=== PATIENT | male | born 1950 | race Caucasian/White ===

== ENCOUNTER → 2021-03-18 | Outpatient (CLI) | payer MEDICARE ==
[2021-03-18 10:20] LABS: African American GFR (CKD) >90 (>60 ml/min/1.73 sqM); Blood Urea Nitrogen 15 mg/dL (9-20); Non-African American GFR(CKD) 86 (>60 ml/min/1.73 sqM)
--- NOTE | 2021-03-18 11:48 | CT ---
EXAMINATION TYPE: CT abdomen pelvis w con DATE OF EXAM: 03/18/2021 COMPARISON: None. HISTORY: Prostate cancer newly diagnosed. CT DLP: 652.3 mGycm, Automated Exposure Control for Dose Reduction was Utilized. CONTRAST: CT scan of the abdomen and pelvis is performed with oral and with IV Contrast, patient injected with 100 mL of Isovue 300. FINDINGS: LUNG BASES: No significant abnormality is appreciated. LIVER/GB: No significant abnormality is appreciated. PANCREAS: No significant abnormality is seen. SPLEEN: No significant abnormality is seen. ADRENALS: No significant abnormality is seen. KIDNEYS: Roughly 1.1 cm benign thin-walled cyst anteriorly at the lower pole of the left kidney coron al image 43 for reference incidentally noted. There is 2 mm nonobstructing calculus upper pole right kidney coronal image 54 Symmetrical rheumatoid uptake and excretion without hydronephrosis. Bladder h as asymmetric moderate wall thickening along superior aspect seen best on coronal images. Correlate c linically for outlet obstruction from BPH. Otherwise other etiologies need to be considered. BOWEL: Contrast extends to the rectum. Normal contrast-filled appendix. No suspicious small or large bowel dilatation PROSTATE/SEMINAL VESICLES: Prostate gland upper limits of normal in size. Adjacent pelvic phleboliths . LYMPH NODES: No greater than 1cm abdominal or pelvic lymph nodes are appreciated. OSSEOUS STRUCTURES: Moderate disc space narrowing lumbosacral junction. Additional moderate disc spac e narrowing T10-T11 level. OTHER: No significant additional abnormality is seen. IMPRESSION: No suspicious mass or adenopathy to suggest metastatic disease.
--- NOTE | 2021-03-18 15:08 | NM ---
EXAMINATION TYPE: NM bone scan whole body DATE OF EXAM: 03/18/2021 COMPARISON: NONE HISTORY: C61 prostate cancer Delayed whole-body scanning was performed following the injection of 22.5 mCi Tc 99m MDP. Images acq uired 3.25 hours post injection. FINDINGS: There is degenerative uptake noted about the shoulders, wrists and hips. No intense uptake to suggest metastatic disease at this time. IMPRESSION: Degenerative uptake as noted.
== END | disposition home or self-care (01) ==
LOC: RADCTMAIN 09:28
PROVIDERS: ATTEND Urology
DX: C61 Malignant neoplasm of prostate (principal)
CPT/HCPCS: 82565; 84520; 74177; 36415; 78306; A9503; Q9967

== ENCOUNTER 2021-04-21 06:50 | Day surgery (SDC) | payer MEDICARE ==
--- NOTE | 2021-04-15 12:33 | P.HPIHPCON ---
History of Present Illness H&P Date: 04/15/21 Chief Complaint: Prostate cancer This is a 70 yo male with hx of jocy 8 prostate cancer, he elected to proceed with external beam radiation therapy. Option of SpaceOR placement was discussed with him. Discussed with him risk which includes but not limited to bleeding, i nfection, rectal perforation. Discussed with him the purpose of the spaceOR placement is to reduce the rectal toxicity from radiation. Discussed that he could still develop rectal toxicity from radiation even with SpaceOR placement . He understood all the risk and agreed to proceed Prostate size 28 g Consent for Procedure: I have explained the operation/procedure to the patient, including the risks, benefits, side effects, alternative therapies (including not receiving the proposed treatment or service), the likelihood of the patient achieving his/her goals, and potential recuperation problems for the procedure/sedation/analgesia, as well as any blood products, if indicated. I also explained to the patient the risks, benefits and side effects of the alternatives, as well as the risks related to not receiving the proposed procedure, care, treatment, or services. Past Medical History Past Medical History: Diabetes Mellitus Additional Past Medical History / Comment(s): Neuropathy CARLOS EDUARDO History of Any Multi-Drug Resistant Organisms: None Reported Past Surgical History: Joint Replacement, Orthopedic Surgery Additional Past Surgical History / Comment(s): L total knee, cataract surgery Past Anesthesia/Blood Transfusion Reactions: No Reported Reaction Past Psychological History: No Psychological Hx Reported Past Alcohol Use History: None Reported Past Drug Use History: None Reported Medications and Allergies Home Medications Medication Instructions Recorded Confirmed Type Insulin Lispro [humaLOG Kwikpen] See Protocol SQ ACHS 12/16/19 12/16/19 History metFORMIN HCL [Glucophage] 1,000 mg PO BID 12/16/19 12/16/19 History Allergies Allergy/AdvReac Type Severity Reaction Status Date / Time No Known Allergies Allergy Verified 12/16/19 14:18 Surgical - Exam - General no distress, no pain - Eyes PERRL, normal ocular movement - ENT normal nares, normal mucosa - Respiratory normal expansion, normal respiratory effort - Abdomen Abdomen: soft, non tender - Psychiatric oriented to time, oriented to person, oriented to place Assessment and Plan Assessment: 70-year-old male with history of Jocy 8 prostate cancer -OR for SpaceOR placement
[2021-04-19 12:51] VITALS: BMI 23.6
[~2021-04-21 06:50] MED LIST: DEXAMETHASONE SOD PHOSPHATE 4 MG/ML 1 ML VIAL IV ONE; LACTATED RINGERS 1,000 ML IV SCH; LIDOCAINE 1% (10MG/ML) FOR IV START INTRADERMA PRN; MIDAZOLAM 2 MG/2 ML VIAL IV PRN; ONDANSETRON 4 MG/2 ML VIAL IVP ONE
[2021-04-21] MEDS ORDERED: HYDROmorphone 0.5 MG/0.5 ML SYRINGE IVP PRN (07:00)
[2021-04-21 08:09] VITALS: TEMP 97.3
[2021-04-21 08:12] LABS: Glucose,Whole Blood 100 mg/dL (75-99)
[2021-04-21] MEDS ORDERED: MIDAZOLAM 2 MG/2 ML VIAL ONE (09:24)
[2021-04-21] MEDS ORDERED: fentaNYL (PF) 50 MCG/ML 2 ML AMP ONE (09:24)
[2021-04-21] MEDS ORDERED: LIDOCAINE 2% INJ 20 MG/ML SQ ONE ×2 (09:48)
--- NOTE | 2021-04-21 10:01 | P.OP ---
Date of Procedure: 04/21/21 Preoperative Diagnosis: Adenocarcinoma the prostate Postoperative Diagnosis: Same Procedure(s) Performed: SpaceOAR Implant Anesthesia: MAC Surgeon: Imtiaz Dorman Estimated Blood Loss (ml): 10 IV fluids (ml): 200 Pathology: none sent Condition: stable Disposition: PACU Indications for Procedure: This is a 70 yo male with hx of jocy 8 prostate cancer, he elected to proceed with external beam radiation therapy. Option of SpaceOAR placement was discuss ed with him. Discussed with him the rationale for the procedure, as well as potential risks which includes but not limited to bleeding, infection, rectal perforation. Operative Findings: 9-10 mm separation created between prostate and rectum. Description of Procedure: The patient was taken to the operating room and placed in the dorsolithotomy position, with his legs supported in Junito stirrups. The external genitalia was prepped and draped sterilely. The Bruel and Kjaer transrectal ultrasound probe was placed intrarectally. The prostate was imaged. The probe was then placed within the stabilizing stand. A spinal needle was advanced under ultrasonic guidance to the level of the urogenital diaphragm, and lidocaine was used to infiltrate the tissues as the needle was withdrawn. Next, the SpaceOAR needle was passed through the midline of the perineum, 1-2 cm anterior to the anal opening. The needle was slowly advanced under ultrasonic guidance until the needle tip was located within the fat plane between the prostate and rectum, at the level of the mid prostate gland. The needle was confirmed to be midline on the axial imaging. A small amount of normal saline was injected for hydrodissection. Next, the SpaceOAR components were mixed and loaded into the Y connector per protocol. The Y connector was then connected to the needle, and the components were injected slowly over a course of approximately 12 seconds. A total of 10 ml was injected. Significant distance was created between the prostate and rectum, as desired. It should be noted that at no point was there any concern of rectal perforation. The needle was withdrawn, as well as the transrectal ultrasound probe, and the procedure was terminated. The patient tolerated the procedure well and was taken to the recovery room in stable condition.
[2021-04-21 11:55] VITALS: BP 113/69; PULSE 68; RESP 16
== END 2021-04-21 12:23 | disposition home or self-care (01) ==
LOC: OR 06:50
PROVIDERS: ATTEND Urology
DX: C61 Malignant neoplasm of prostate (principal); E11.9 Type 2 diabetes mellitus without complications; G62.9 Polyneuropathy, unspecified; M19.90 Unspecified osteoarthritis, unspecified site; K21.9 Gastro-esophageal reflux disease without esophagitis; Z96.652 Presence of left artificial knee joint; Z98.49 Cataract extraction status, unspecified eye; Z79.84 Long term (current) use of oral hypoglycemic drugs; Z79.4 Long term (current) use of insulin
CPT/HCPCS: 55874; C1889; J2001; J2250; J1100; J0690; J2405; J3010

== ENCOUNTER → 2021-07-11 | Outpatient (CLI) | payer MEDICARE | END | disposition home or self-care (01) | LOC: LABWHC1 13:19 | PROVIDERS: ATTEND Radiology Radiation Oncology | DX: C61 Malignant neoplasm of prostate (principal); R97.20 Elevated prostate specific antigen [PSA] | CPT/HCPCS: 36415; 84153 ==

== ENCOUNTER → 2022-01-10 | Outpatient (CLI) | payer MEDICARE | END | disposition home or self-care (01) | LOC: LABWHC1 09:17 | PROVIDERS: ATTEND Radiology Radiation Oncology | DX: C61 Malignant neoplasm of prostate (principal); R97.20 Elevated prostate specific antigen [PSA] | CPT/HCPCS: 36415; 84153 ==

== ENCOUNTER → 2022-07-10 | Outpatient (CLI) | payer MEDICARE | LOC: LABWHC1 08:58 | PROVIDERS: ATTEND Radiology Radiation Oncology | DX: C61 Malignant neoplasm of prostate (principal); R97.20 Elevated prostate specific antigen [PSA]; R35.1 Nocturia | CPT/HCPCS: 36415; 84153 ==

== ENCOUNTER → 2023-02-02 | Outpatient (CLI) | payer MEDICARE | END | disposition home or self-care (01) | LOC: LABWHC1 08:08 | PROVIDERS: ATTEND Radiology Radiation Oncology | DX: C61 Malignant neoplasm of prostate (principal); R35.1 Nocturia; R97.20 Elevated prostate specific antigen [PSA] | CPT/HCPCS: 36415; 84153 ==

== ENCOUNTER → 2023-08-03 | Outpatient (CLI) | payer MEDICARE | END | disposition home or self-care (01) | LOC: LABWHC1 09:12 | PROVIDERS: ATTEND Radiology Radiation Oncology | DX: C61 Malignant neoplasm of prostate (principal); R35.1 Nocturia; R97.20 Elevated prostate specific antigen [PSA] | CPT/HCPCS: 36415; 84153 ==

== ENCOUNTER → 2024-05-05 | Outpatient (CLI) | payer MEDICARE | END | disposition home or self-care (01) | LOC: LABWHC1 08:58 | PROVIDERS: ATTEND Radiology Radiation Oncology | DX: Z08 Encounter for follow-up examination after completed treatment for malignant neoplasm (principal); Z12.5 Encounter for screening for malignant neoplasm of prostate; C61 Malignant neoplasm of prostate; R35.1 Nocturia; R97.20 Elevated prostate specific antigen [PSA] | CPT/HCPCS: 36415; G0103 ==